=== PATIENT | male | born 1975 | race Caucasian/White ===

== ENCOUNTER 2020-04-26 13:13 | Emergency (ER) | payer SELFPAY ==
[~2020-04-26] VITALS: Ht 188 cm; Wt 100.0 kg
[2020-04-26 13:21] VITALS: BP 114/77; PULSE 98; TEMP 98.3
== END 2020-04-26 15:08 | disposition left against medical advice (07) ==
LOC: COL.ER 13:13
DX: M43.16 Spondylolisthesis, lumbar region (principal); M51.36 Other intervertebral disc degeneration, lumbar region; F17.210 Nicotine dependence, cigarettes, uncomplicated; Z87.442 Personal history of urinary calculi; W10.9XXA Fall (on) (from) unspecified stairs and steps, initial encounter
CPT/HCPCS: J1885

== ENCOUNTER → 2020-05-28 | Outpatient (CLI) | payer SELFPAY | LOC: COL.RAD 13:30 | DX: R22.1 Localized swelling, mass and lump, neck (principal) ==